=== PATIENT | female | born 1975 | race Caucasian/White ===

== ENCOUNTER 2019-05-15 16:29 | Emergency (ER) | payer SELFPAY ==
[~2019-05-15] VITALS: Ht 165.1 cm; Wt 90.7 kg
[2019-05-15 16:46] VITALS: BP_SYST 134
--- NOTE | 2019-05-15 16:55 | NUR ---
Patient triaged and placed in waiting room. VSS and patient appears in no acute distress at this time. Accompanied by self, awaiting available bed, and MD notified of need for MSE.
--- NOTE | 2019-05-15 18:09 | NUR ---
Placed in hallway chair 1 for exam.
--- NOTE | 2019-05-15 18:20 | NUR ---
GLORIA Crane D[employer] OPERATOR at bedside examining patient.
[2019-05-15] MEDS ORDERED: IBUPROFEN 600 MG TABLET PO ONE (18:30)
[2019-05-15] MEDS ORDERED: BACITRACIN 1 GM OINT TP ONE ×2 (18:30→18:46)
--- NOTE | 2019-05-15 18:30 | NUR ---
PT ARRIVES FROM HOME W/ C/O RIGHT ANKLE PAIN 8/10 AND SWELLING. PT WAS JUMPING A FENCE AND FELL ON HER LEFT ANKLE. X-RAYS DONE WHILE THE PT WAS IN THE TRAIAGE AREA.
--- NOTE | 2019-05-15 18:40 | NUR ---
MEDICATED THE PT W/ NORCO AND MOTRIN ORDERED. WILL REASSESS
[2019-05-15] MEDS ORDERED: HYDROcodone/ACETAMIN 7.5-325 MG TAB PO ONE (18:45)
--- NOTE | 2019-05-15 18:50 | NUR ---
PT GETTING RIGHT ANKLE SPLINT.
[2019-05-15 19:00] VITALS: BP_SYST 128
--- NOTE | 2019-05-15 19:00 | NUR ---
Patient given written and verbal discharge instructions and verbalizes understanding. ER MD discussed with patient the results and treatment provided. Patient in stable condition. ID arm band removed. Rx of motrin, norco, bacitracin given. Patient educated on pain management and to follow up with PMD. Pain Scale 2/10. Opportunity for questions provided and answered. Medication side effect fact sheet provided.
== END 2019-05-15 19:00 | disposition home or self-care (01) ==
LOC: SED 16:29
DX: S82.831A Other fracture of upper and lower end of right fibula, initial encounter for closed fracture (principal); S80.211A Abrasion, right knee, initial encounter; R03.0 Elevated blood-pressure reading, without diagnosis of hypertension; Z88.8 Allergy status to other drugs, medicaments and biological substances; W18.39XA Other fall on same level, initial encounter; Y93.02 Activity, running; Y92.89 Other specified places as the place of occurrence of the external cause; Y99.8 Other external cause status
CPT/HCPCS: 73590-TC; 99284